=== PATIENT | female | born 1985 | race Caucasian/White ===

== ENCOUNTER 2017-02-15 16:17 | Outpatient (CLI) ==
[2015-11-08 17:39] VITALS: BMI 19.3
== END 2017-02-15 16:18 | disposition home or self-care (01) ==
LOC: LAB 16:17
PROVIDERS: ATTEND Emergency Medicine
DX: F41.1 Generalized anxiety disorder (principal); R11.0 Nausea; F39 Unspecified mood [affective] disorder
CPT/HCPCS: 36415; 80053; 84443; 85025